=== PATIENT | female | born 1985 | race Caucasian/White ===

== ENCOUNTER 2016-05-31 17:21 | Emergency (ER) | payer OTHER ==
[~2016-05-31] VITALS: Ht 170.2 cm; Wt 54.2 kg
[~2016-05-31 17:21] MED LIST: AMITRIPTYLINE H75 MG PO; CIPRO500 MG PO; Colace PO; ENDOCET 5-3251 EACH PO; FLOMAX0.4 MG PO; Feosol PO; GABAPENTIN300 MG PO; LEVOTHYROXINE112 MCG PO; MIRALAX17 GM PO; Motrin PO; OXYCODONE-ACET1 EACH PO; PERCOCET 5/31 TABLET PO; SEASONIQUE 01 TABLET PO; SERTRALINE HCL100 MG PO; TOPAMAX50 MG PO; TORADOL10 MG PO; TRAZODONE HCL50 MG PO; VIACTIV SOFT C1 EACH PO; ZOFRAN ODT8 MG PO
[2016-05-31] MEDS ORDERED: LEVO-T112 MCG PO (18:40)
[2016-05-31] MEDS ORDERED: PEN-VEE K,VEET500 MG PO (18:46)
[2016-05-31] MEDS ORDERED: NORCO 5/3251 TABLET PO (18:46)
[2016-05-31 18:54] VITALS: BP 120/76
== END 2016-05-31 18:58 | disposition home or self-care (01) ==
LOC: EME 17:21
DX: K08.89 Other specified disorders of teeth and supporting structures (principal)
CPT/HCPCS: 99281; 99284

== ENCOUNTER 2016-06-09 10:12 | Emergency (ER) | payer OTHER ==
[~2016-06-09] VITALS: Ht 170.2 cm; Wt 54.0 kg
[~2016-06-09 10:12] MED LIST changes: +LEVO-T112 MCG PO; +NORCO 5/3251 TABLET PO; +PEN-VEE K,VEET500 MG PO
[2016-06-09 11:24] LABS: HEMATOCRIT 43.2 % (36.0-46.0); MCH 30.5 PG (29.0-34.0); MCHC 33.1 G/DL (30.0-36.0); MCV 92.1 FL (83-99); MEAN PLAT.VOLUME 9.8 uM^3 (9.5-12.4); PLATELET COUNT 281 K/uL (156-360); RBC DIS.WIDTH-CV 12.8 % (11.8-14.6); RBC DIS.WIDTH-SD 42.9 % (39-53); RED BLOOD COUNT 4.69 M/uL (3.80-5.20); WHITE BLOOD COUNT 6.1 K/uL (4.1-10.2)
[2016-06-09 11:27] LABS: ADD MIUA? YES; BILIRUBIN NEGATIVE; BLOOD MODERATE; COLOR YELLOW ((YELLOW)); GLUCOSE (STRIP) NEGATIVE; KETONES NEGATIVE; LEUKOCYTES MODERATE; NITRITE NEGATIVE; PROTEIN (STRIP) NEGATIVE; SPECIFIC GRAVITY 1.014 (1.000-1.030); UROBILINOGEN 0.2 MG/DL (0.2-1.0)
[2016-06-09 11:37] LABS: CHLORIDE 105 mEq/L (99-109); POTASSIUM 4.6 mEq/L (3.7-5.4); SODIUM 140 mEq/L (136-147)
[2016-06-09 11:38] LABS: GLUCOSE 89 mg/dL (70-99)
[2016-06-09 11:40] LABS: ANION GAP 8 MEQ/L (2-14)
[2016-06-09 11:42] LABS: GFR ESTIMATE (CALCULATED) > 59 mL/min/
[2016-06-09 11:43] LABS: UREA NITROGEN (BUN) 10 mg/dL (9-23)
[2016-06-09 11:44] LABS: BACTERIA RARE /HPF; EPITHELIAL CELLS 1+ /HPF; MUCUS TRACE /LPF; RED BLOOD CELLS 0-5 /HPF (0-5); UCUL ADDED? NO; WHITE BLOOD CELLS 0-5 /HPF (0-5)
[2016-06-09 11:54] LABS: QUANTITATIVE HCG < 4.0 MIU/ML
[2016-06-09] MEDS ORDERED: LEVAQUIN750 MG PO (13:21)
[2016-06-09 13:52] VITALS: BP 114/71
== END 2016-06-09 13:53 | disposition home or self-care (01) ==
LOC: EME 10:12 → RME 10:12
PROVIDERS: Emergency Medicine
DX: N10 Acute pyelonephritis (principal); E86.0 Dehydration; R11.2 Nausea with vomiting, unspecified; K21.9 Gastro-esophageal reflux disease without esophagitis; Z87.442 Personal history of urinary calculi; E07.9 Disorder of thyroid, unspecified; Z87.891 Personal history of nicotine dependence
CPT/HCPCS: 74176; 80048; 81003; 84702; 85027; 87086; 99281; 99284